=== PATIENT | male | born 1995 | race Hispanic/Latino ===

== ENCOUNTER 2017-06-22 20:16 | Emergency (ER) | payer SELFPAY ==
[2017-06-22 20:18] VITALS: BMI 34.3
[2017-06-22 20:22] VITALS: TEMP 98.4
[2017-06-22] MEDS ORDERED: TDAP Vaccine 0.5 mL Syr IM ONE (23:17)
[2017-06-22] MEDS ORDERED: Lidocaine 1% Inj (20ml) ONE (23:19)
--- NOTE | 2017-06-22 23:20 | ED PDOC ---
Arrival/HPI - General Chief Complaint: Abnormal Skin Integrity Time Seen by Provider: 06/22/17 21:22 Historian: Patient - History of Present Illness Narrative History of Present Illness (Text): 06/23/17 01:50 22 yo M c/o laceration to the L lateral thigh today while he was washing dishes and a knife fell. Denies any numbness, decrease in ROM, or any other injury. Reports no other complaints. PMD none Past Medical History - Provider Review Nursing Documentation Reviewed: Yes - Infectious Disease Hx of Infectious Diseases: None - Tetanus Immunization Tetanus Immunization: Unknown - Psychiatric Hx Substance Use: No - Anesthesia Hx Anesthesia: No Family/Social History - Physician Review Nursing Documentation Reviewed: Yes Family/Social History: No Known Family HX Smoking Status: Never Smoked Hx Alcohol Use: No Hx Substance Use: No Allergies/Home Meds Allergies/Adverse Reactions: Allergies No Known Allergies Allergy (Verified 06/22/17 21:26) Home Medications: Home Meds Medication Instructions Recorded Confirmed No Known Home Med 06/22/17 06/22/17 Review of Systems - Review of Systems Constitutional: Normal. absent: Fatigue, Weight Change, Fevers Skin: Normal, Laceration. absent: Rash, Pruritis, Skin Lesions Physical Exam Vital Signs Reviewed: Yes Vital Signs Temp Pulse Resp BP Pulse Ox 06/22/17 23:46 88 16 132/80 97 06/22/17 22:16 89 18 135/80 97 06/22/17 20:21 98.4 F 92 H 18 145/87 96 Temperature: Afebrile Blood Pressure: Normal Pulse: Regular Respiratory Rate: Normal Appearance: Positive for: Well-Appearing, Non-Toxic, Comfortable Pain Distress: None Mental Status: Positive for: Alert and Oriented X 3 - Systems Exam Lower Extremity: Present: NORMAL PULSES, Normal ROM, Neurovascularly Intact, Capillary Refill < 2 s. No: Edema, Tenderness, Swelling, Deformity, Temperature Abnormalties Neurological: Present: GCS=15, CN II-XII Intact Skin: Present: Warm, Dry, Normal Color, Laceration (+2.5 cm laceration to the lateral aspect of the L thigh. ). No: Rashes Medical Decision Making ED Course and Treatment: 06/23/17 01:53 22 yo M presents with laceration to the L thigh. Plan : - Tdap IM - Lac repair Lac repair done by [facility]. Patient instructed on proper wound care and advised of the signs and symptoms of wound infection. Advised to have sutures removed after 7 days. Instructed to f/u with the clinic after 2 days for wound care. - Medication Orders Current Medication Orders: Discontinued Medications Tetanus/Reduced Diphtheria/Acell Pertussis (Boostrix Vaccine Inj) 0.5 ml IM .ONCE ONE Stop: 06/22/17 23:18 Last Admin: 06/22/17 23:35 Dose: 0.5 ml Immunization Registry Document 06/22/17 23:35 JOGerson (Rec: 06/22/17 23:35 [facility]OL [facility] [id number]) Immunization Registry Consent Date 06/22/17 Procedure: Wound Repair - Time Performed Time Performed: 22:45 - Time Out Time Out: Side verified, Site verified, Patient ID confirmed - Consent Obtained Consent obtained: Verbal - Performed by Performed by: Mid-level Provider - Indications Indication(s):: Laceration - Location Location:: Left, Thigh Shape:: Linear Dimensions Length cm: 2.5 Depth:: Epidermis - Anesthetic Technique Anesthetic Technique: Local Local/Regional Anesthetic:: Lidocaine 1% - Debris Debris:: None - Irrigated Irrigated with ml of normal saline: 100 - Complexity Complexity:: Simple (one layer) - Wound repair method Sutures:: # (4), Size (40 nylon) - Complications Complications: none - Patient tolerated procedure Patient Tolerated Procedure:: Well - PA / DONOR SUPPORT TECHNICIAN / Resident Statement / has reviewed & agrees with the documentation as recorded. Disposition/Present on Arrival - Present on Arrival Any Indicators Present on Arrival: No History of DVT/PE: No History of Uncontrolled Diabetes: No Urinary Catheter: No History of Decub. Ulcer: No History Surgical Site Infection Following: None - Disposition Have Diagnosis and Disposition been Completed?: Yes Diagnosis: Leg laceration Disposition: HOME/ ROUTINE Disposition Time: 23:19 Patient Plan: Discharge Condition: STABLE Discharge Instructions (ExitCare): Care For Your Stitches (ED), Laceration (ED) Print Language: POLISH Additional Instructions: Have sutures removed after 7 days. Follow up with your pmd or the clinic in 2 days for wound check. Referrals: [facility] at [facility] [place] [Outside] - Follow up with primary Forms: [employer] (Spanish), WORK NOTE
[2017-06-22] MEDS ORDERED: Bacitracin 500 Units/gm Oint Foilpak UD ONE (23:34)
[2017-06-22 23:46] VITALS: O2SAT 97
[2017-06-22 23:47] VITALS: BP 132/80; PULSE 88; RESP 16
== END 2017-06-22 23:47 | disposition home or self-care (01) ==
LOC: ED 20:16
DX: S71.112A Laceration without foreign body, left thigh, initial encounter (principal); W26.0XXA Contact with knife, initial encounter; Y93.G1 Activity, food preparation and clean up; Y92.008 Other place in unspecified non-institutional (private) residence as the place of occurrence of the external cause